=== PATIENT | female | born 1990 | race Caucasian/White ===

== ENCOUNTER 2018-05-28 13:53 | Inpatient (IN) ==
--- NOTE | 2018-05-28 13:58 | Emergency Department Note ---
Disposition Clinical Impression: Suicidal ideation, Medical clearance for psychiatric admission Disposition: Admitted As Inpatient Condition: Undetermined General Adult HPI - General Time Seen by Provider: 05/28/18 13:55 - Related Data Home Medications Medication Instructions Recorded Confirmed DULoxetine [Cymbalta] 30 mg PO DAILY 05/28/18 05/28/18 Gabapentin [Neurontin] 600 mg PO TID 05/28/18 05/28/18 Quetiapine Fumarate [SEROquel] 300 mg PO HS 05/28/18 05/28/18 lamoTRIgine [Subvenite] 25 mg PO DAILY 05/28/18 05/28/18 Allergies Allergy/AdvReac Type Severity Reaction Status Date / Time No Known Allergies Allergy Verified 05/28/18 14:02 Course Vital Signs Temperature 98.6 F 05/28/18 13:55 Pulse Rate 153 05/28/18 13:55 Respiratory Rate 14 05/28/18 13:55 Blood Pressure 113/96 05/28/18 13:55 O2 Sat by Pulse Oximetry 100 05/28/18 13:55 Temperature 98.6 F 05/28/18 14:07 Pulse Rate 88 05/28/18 15:26 Respiratory Rate 16 05/28/18 15:26 Blood Pressure 113/78 05/28/18 15:26 O2 Sat by Pulse Oximetry 98 05/28/18 15:26 Oxygen Delivery Oxygen Delivery Room Air Medical Decision Making - Lab Data Result diagrams: 05/28/18 14:04 05/28/18 14:04 Lab Results 05/28/18 05/28/18 05/28/18 Range/Units 14:04 14:04 14:04 WBC 8.4 (4.3-11.1) K/mcL RBC 4.73 (3.82-4.97) M/mcL Hgb 14.2 (11.5-15.4) g/dL Hct 40.0 (35.3-44.9) % MCV 84.6 (83.0-100.0) fL MCH 30.0 (28.0-33.3) pg MCHC 35.5 (31.6-35.5) g/dL RDW 12.0 (11.5-14.5) % Plt Count 308 (140-400) K/mcL MPV 8.4 L (9.4-12.4) fL Immature Gran % 0.4 (0-4) % Seg Neutrophils % 59.1 % Lymphocytes % 26.4 % Monocytes % 7.1 % Eosinophils % 6.5 % Basophils % 0.5 % Neutrophils # 5.0 (1.6-8.9) K/mcL Lymphocytes # 2.2 (0.6-4.6) K/mcL Monocytes # 0.6 (0.0-1.3) K/mcL Eosinophils # 0.5 (0.0-0.6) K/mcL Basophils # 0.0 (0.0-0.2) K/mcL Sodium 139 (136-145) mEq/L Potassium 3.8 (3.5-5.1) mEq/L Chloride 105 (98-107) mEq/L Carbon Dioxide 27 (23-29) mEq/L BUN 5 L (6-20) mg/dL Creatinine 0.72 (0.60-1.20) mg/dL Est GFR ( Amer) > 60 (> 60) Est GFR (Non-Af Amer) > 60 (> 60) BUN/Creatinine Ratio 7 (6-26) Glucose 111 H (70-105) mg/dL Calculated Osmolality 286 (280-300) Calcium 9.7 (8.6-10.3) mg/dL Total Bilirubin 0.4 (0.3-1.0) mg/dL Direct Bilirubin 0.1 (0.0-0.2) mg/dL Indirect Bilirubin 0.3 (0.0-1.2) mg/dL AST 20 (13-39) Units/L ALT 26 (7-52) Units/L Alkaline Phosphatase 70 (34-104) Units/L Serum Total Protein 7.6 (6.4-8.9) g/dL Albumin 4.2 (3.5-5.7) g/dL Globulin 3.4 (2.4-3.5) g/dL Albumin/Globulin Ratio 1.2 (1.1-2.2) Serum , Qual Negative (Negative) Urine Color (Yellow) Urine Clarity (Clear) Urine pH (5.0-8.0) pH Units Ur Specific Maynard (1.010-1.025) Urine Protein (Neg-Trace) mg/dL Urine Glucose (UA) (Normal) mg/dL Urine Ketones (Negative) mg/dL Urine Blood (Negative) Urine Nitrite (Negative) Urine Bilirubin (Negative) Urine Urobilinogen (Normal) mg/dL Ur Leukocyte Esterase (Negative) Urine Test (Negative) Salicylates < 2.5 L (15.0-30.0) mg/dL Urine Opiates Screen (Vkyvab=511) ng/mL Acetaminophen < 10 L (10-20) mcg/mL Ur Barbiturates Screen (Qyaopo=461) ng/mL Valproic Acid < 4 L (50-100) mcg/mL Ur Phencyclidine Scrn (Cutoff=25) ng/mL Ur Amphetamines Screen (Wwlmfg=8801) ng/mL U Benzodiazepines Scrn (Qnifna=462) ng/mL Urine Cocaine Screen (Cutoff= 300) ng/mL U Marijuana (THC) Screen (Cutoff = 50) ng/mL Ur Drug Screen Interp Ethyl Alcohol < 10 (Less than 10) mg/dL 05/28/18 05/28/18 05/28/18 Range/Units 14:25 14:25 14:25 WBC (4.3-11.1) K/mcL RBC (3.82-4.97) M/mcL Hgb (11.5-15.4) g/dL Hct (35.3-44.9) % MCV (83.0-100.0) fL MCH (28.0-33.3) pg MCHC (31.6-35.5) g/dL RDW (11.5-14.5) % Plt Count (140-400) K/mcL MPV (9.4-12.4) fL Immature Gran % (0-4) % Seg Neutrophils % % Lymphocytes % % Monocytes % % Eosinophils % % Basophils % % Neutrophils # (1.6-8.9) K/mcL Lymphocytes # (0.6-4.6) K/mcL Monocytes # (0.0-1.3) K/mcL Eosinophils # (0.0-0.6) K/mcL Basophils # (0.0-0.2) K/mcL Sodium (136-145) mEq/L Potassium (3.5-5.1) mEq/L Chloride (98-107) mEq/L Carbon Dioxide (23-29) mEq/L BUN (6-20) mg/dL Creatinine (0.60-1.20) mg/dL Est GFR ( Amer) (> 60) Est GFR (Non-Af Amer) (> 60) BUN/Creatinine Ratio (6-26) Glucose (70-105) mg/dL Calculated Osmolality (280-300) Calcium (8.6-10.3) mg/dL Total Bilirubin (0.3-1.0) mg/dL Direct Bilirubin (0.0-0.2) mg/dL Indirect Bilirubin (0.0-1.2) mg/dL AST (13-39) Units/L ALT (7-52) Units/L Alkaline Phosphatase (34-104) Units/L Serum Total Protein (6.4-8.9) g/dL Albumin (3.5-5.7) g/dL Globulin (2.4-3.5) g/dL Albumin/Globulin Ratio (1.1-2.2) Serum , Qual (Negative) Urine Color Yellow (Yellow) Urine Clarity Clear (Clear) Urine pH 7.5 (5.0-8.0) pH Units Ur Specific Maynard 1.007 L (1.010-1.025) Urine Protein Negative (Neg-Trace) mg/dL Urine Glucose (UA) Normal (Normal) mg/dL Urine Ketones Negative (Negative) mg/dL Urine Blood Negative (Negative) Urine Nitrite Negative (Negative) Urine Bilirubin Negative (Negative) Urine Urobilinogen Normal (Normal) mg/dL Ur Leukocyte Esterase Negative (Negative) Urine Test Negative (Negative) Salicylates (15.0-30.0) mg/dL Urine Opiates Screen Negative (Welgbj=204) ng/mL Acetaminophen (10-20) mcg/mL Ur Barbiturates Screen Negative (Wziudn=658) ng/mL Valproic Acid (50-100) mcg/mL Ur Phencyclidine Scrn Negative (Cutoff=25) ng/mL Ur Amphetamines Screen Negative (Zpifgr=3284) ng/mL U Benzodiazepines Scrn Negative (Qqxyyv=698) ng/mL Urine Cocaine Screen Negative (Cutoff= 300) ng/mL U Marijuana (THC) Screen Negative (Cutoff = 50) ng/mL Ur Drug Screen Interp See Below Ethyl Alcohol (Less than 10) mg/dL Critical Care Time Critical Care Time: Yes Total Critical Care Time: 30 Attestation: The high probability of a clinically significant, sudden or life threatening deterioration of the [] system(s) required my full and direct attention, intervention and personal management. The aggregate critical care time was [] minutes. This time is in addition to time spent performing reported procedures but includes the following: [] Data Review and interpretation [] Patient assessment and monitoring of vital signs [] Documentation [] Medication orders and management Attestation Statement - Attestation Attestation: I examined this patient and my medical decision-making was reviewed with the Resident Physician. I agree with the documented findings, disposition and treatment plan as described except to the extent set forth below. [id number] time provided Patient arrives by EMS from home. She was reported to be found by her roommates unresponsive. She is found to have superficial abrasions to her wrist. Upon arrival the patient is somnolent but responding to tactile stimuli. The medications brought with her revealed that she takes neuroleptic medications. Other medical history is unknown. The patient was given IV Narcan and responded subsequently and became very agitated and tachycardic. She is protecting her airway. Psychiatric/altered mental status workup initiated
--- NOTE | 2018-05-28 14:01 | Emergency Department Note ---
Disposition Clinical Impression: Suicidal ideation, Medical clearance for psychiatric admission Disposition: Admitted As Inpatient Condition: Undetermined Referrals: NONE,PCP [Primary Care Provider] - Forms: ED Satisfaction Letter Time of Disposition: 16:50 General Adult HPI - General Chief complaint: ED Psychiatric Symptoms Stated complaint: Unresponsive Time Seen by Provider: 05/28/18 13:55 Source: EMS Mode of arrival: EMS Limitations: altered mental status Nursing Notes Reviewed: Yes Vital Signs Reviewed: Yes - History of Present Illness HPI Narrative: 28-year-old female arrives to the emergency department after being found unresponsive by patient's roommates. The patient apparently stated she wanted to . She had numerous superficial abrasions to her left wrist. No pills were found. No emesis was noted upon arrival from EMS. EMS stated that she was unresponsive to any stimuli. When she was protecting her airway. Upon arrival to the emergency department, the patient was unresponsive but quickly was aroused after evaluation and Narcan was administered. The patient did not have signs similar to opiate intoxication. The patient began screaming that she wanted to . Unknown medical history otherwise other than the antiepileptics at the patient arrived with. She is on Lamictal, gabapentin, duloxetine, and Seroquel. The patient continues to scream and be unresponsive upon evaluation. No obvious trauma with the exception of very small superficial lacerations to the left wrist in a horizontal type pattern. The patient has no obvious head trauma, or any other signs of trauma noted. The patient was following commands to include looking at a evaluated her's when asked to. - Related Data Home Medications Medication Instructions Recorded Confirmed DULoxetine [Cymbalta] 30 mg PO DAILY 05/28/18 05/28/18 Gabapentin [Neurontin] 600 mg PO TID 05/28/18 05/28/18 Quetiapine Fumarate [SEROquel] 300 mg PO HS 05/28/18 05/28/18 lamoTRIgine [Subvenite] 25 mg PO DAILY 05/28/18 05/28/18 Allergies Allergy/AdvReac Type Severity Reaction Status Date / Time No Known Allergies Allergy Verified 05/28/18 14:02 Limitations: ROS unobtainable due to patients medical condition Past Medical History - Past Medical History Source: old records reviewed Medical history: Reports: seizures - Social History Smoking Status: Unknown if ever smoked Alcohol use: Reports: unknown Drug use: Reports: unknown Physical Exam - General Limitations: altered mental status General appearance: in no apparent distress, other (somnolent but responsive) - Head Head exam: atraumatic, normocephalic, normal inspection - Eye Eye exam: Present: normal appearance, PERRL, EOMI - ENT ENT exam: normal exam, normal oropharynx, mucous membranes moist - Neck Neck exam: Present: normal inspection, full ROM, trachea midline - Chest Chest inspection: Present: normal inspection, symmetric chest wall rise - Respiratory Respiratory exam: Present: normal lung sounds bilaterally - Cardiovascular Cardiovascular exam: Present: normal rhythm, tachycardia, normal heart sounds - Abdominal Exam Abdominal exam: Present: soft, Non-Tender. Absent: tenderness, distention, guarding, rebound, rigidity - Extremities Exam Extremities exam: Present: full ROM, normal capillary refill, other (Small superficial lacerations to the patients anterior left wrist). Absent: tenderness, pedal edema - Expanded Neurological Exam Speech: Present: fluid speech Coma Scale Eye Opening: Spontaneous Coma Scale Motor Response: Obeys Commands Coma Scale Verbal Response: Oriented Coma Scale Total: 15 - Psychiatric Psychiatric exam: Present: agitated, suicidal ideation - Skin Skin exam: Present: warm, dry, intact, normal color Course - Reevaluation(s) Reevaluation #1: Patient's lab work is unremarkable. Patient is awake and alert and answering questions appropriately. The patient has been medically cleared. 1A called and will see patient. Time: 14:56 Vital Signs Temperature 98.6 F 05/28/18 13:55 Pulse Rate 153 05/28/18 13:55 Respiratory Rate 14 05/28/18 13:55 Blood Pressure 113/96 05/28/18 13:55 O2 Sat by Pulse Oximetry 100 05/28/18 13:55 Temperature 98.6 F 05/28/18 14:07 Pulse Rate 88 05/28/18 15:26 Respiratory Rate 16 05/28/18 15:26 Blood Pressure 113/78 05/28/18 15:26 O2 Sat by Pulse Oximetry 98 05/28/18 15:26 Oxygen Delivery Oxygen Delivery Room Air Medical Decision Making - MDM Narrative Medical decision making narrative: Patient evaluated by one a. The patient will be admitted to Dr. Dubon. Patient made aware. No further questions or concerns noted. A pink slip was filled out and applied the patient's chart. - Lab Data Lab results reviewed: Yes I reviewed the patient's lab results. Result diagrams: 05/28/18 14:04 05/28/18 14:04 Lab Results 05/28/18 05/28/18 05/28/18 Range/Units 14:04 14:04 14:04 WBC 8.4 (4.3-11.1) K/mcL RBC 4.73 (3.82-4.97) M/mcL Hgb 14.2 (11.5-15.4) g/dL Hct 40.0 (35.3-44.9) % MCV 84.6 (83.0-100.0) fL MCH 30.0 (28.0-33.3) pg MCHC 35.5 (31.6-35.5) g/dL RDW 12.0 (11.5-14.5) % Plt Count 308 (140-400) K/mcL MPV 8.4 L (9.4-12.4) fL Immature Gran % 0.4 (0-4) % Seg Neutrophils % 59.1 % Lymphocytes % 26.4 % Monocytes % 7.1 % Eosinophils % 6.5 % Basophils % 0.5 % Neutrophils # 5.0 (1.6-8.9) K/mcL Lymphocytes # 2.2 (0.6-4.6) K/mcL Monocytes # 0.6 (0.0-1.3) K/mcL Eosinophils # 0.5 (0.0-0.6) K/mcL Basophils # 0.0 (0.0-0.2) K/mcL Sodium 139 (136-145) mEq/L Potassium 3.8 (3.5-5.1) mEq/L Chloride 105 (98-107) mEq/L Carbon Dioxide 27 (23-29) mEq/L BUN 5 L (6-20) mg/dL Creatinine 0.72 (0.60-1.20) mg/dL Est GFR ( Amer) > 60 (> 60) Est GFR (Non-Af Amer) > 60 (> 60) BUN/Creatinine Ratio 7 (6-26) Glucose 111 H (70-105) mg/dL Calculated Osmolality 286 (280-300) Calcium 9.7 (8.6-10.3) mg/dL Total Bilirubin 0.4 (0.3-1.0) mg/dL Direct Bilirubin 0.1 (0.0-0.2) mg/dL Indirect Bilirubin 0.3 (0.0-1.2) mg/dL AST 20 (13-39) Units/L ALT 26 (7-52) Units/L Alkaline Phosphatase 70 (34-104) Units/L Serum Total Protein 7.6 (6.4-8.9) g/dL Albumin 4.2 (3.5-5.7) g/dL Globulin 3.4 (2.4-3.5) g/dL Albumin/Globulin Ratio 1.2 (1.1-2.2) Serum , Qual Negative (Negative) Urine Color (Yellow) Urine Clarity (Clear) Urine pH (5.0-8.0) pH Units Ur Specific Sharon (1.010-1.025) Urine Protein (Neg-Trace) mg/dL Urine Glucose (UA) (Normal) mg/dL Urine Ketones (Negative) mg/dL Urine Blood (Negative) Urine Nitrite (Negative) Urine Bilirubin (Negative) Urine Urobilinogen (Normal) mg/dL Ur Leukocyte Esterase (Negative) Urine Test (Negative) Salicylates < 2.5 L (15.0-30.0) mg/dL Urine Opiates Screen (Vsszfy=734) ng/mL Acetaminophen < 10 L (10-20) mcg/mL Ur Barbiturates Screen (Rztpnt=544) ng/mL Valproic Acid < 4 L (50-100) mcg/mL Ur Phencyclidine Scrn (Cutoff=25) ng/mL Ur Amphetamines Screen (Zicjar=3299) ng/mL U Benzodiazepines Scrn (Skndth=680) ng/mL Urine Cocaine Screen (Cutoff= 300) ng/mL U Marijuana (THC) Screen (Cutoff = 50) ng/mL Ur Drug Screen Interp Ethyl Alcohol < 10 (Less than 10) mg/dL 05/28/18 05/28/18 05/28/18 Range/Units 14:25 14:25 14:25 WBC (4.3-11.1) K/mcL RBC (3.82-4.97) M/mcL Hgb (11.5-15.4) g/dL Hct (35.3-44.9) % MCV (83.0-100.0) fL MCH (28.0-33.3) pg MCHC (31.6-35.5) g/dL RDW (11.5-14.5) % Plt Count (140-400) K/mcL MPV (9.4-12.4) fL Immature Gran % (0-4) % Seg Neutrophils % % Lymphocytes % % Monocytes % % Eosinophils % % Basophils % % Neutrophils # (1.6-8.9) K/mcL Lymphocytes # (0.6-4.6) K/mcL Monocytes # (0.0-1.3) K/mcL Eosinophils # (0.0-0.6) K/mcL Basophils # (0.0-0.2) K/mcL Sodium (136-145) mEq/L Potassium (3.5-5.1) mEq/L Chloride (98-107) mEq/L Carbon Dioxide (23-29) mEq/L BUN (6-20) mg/dL Creatinine (0.60-1.20) mg/dL Est GFR ( Amer) (> 60) Est GFR (Non-Af Amer) (> 60) BUN/Creatinine Ratio (6-26) Glucose (70-105) mg/dL Calculated Osmolality (280-300) Calcium (8.6-10.3) mg/dL Total Bilirubin (0.3-1.0) mg/dL Direct Bilirubin (0.0-0.2) mg/dL Indirect Bilirubin (0.0-1.2) mg/dL AST (13-39) Units/L ALT (7-52) Units/L Alkaline Phosphatase (34-104) Units/L Serum Total Protein (6.4-8.9) g/dL Albumin (3.5-5.7) g/dL Globulin (2.4-3.5) g/dL Albumin/Globulin Ratio (1.1-2.2) Serum , Qual (Negative) Urine Color Yellow (Yellow) Urine Clarity Clear (Clear) Urine pH 7.5 (5.0-8.0) pH Units Ur Specific Sharon 1.007 L (1.010-1.025) Urine Protein Negative (Neg-Trace) mg/dL Urine Glucose (UA) Normal (Normal) mg/dL Urine Ketones Negative (Negative) mg/dL Urine Blood Negative (Negative) Urine Nitrite Negative (Negative) Urine Bilirubin Negative (Negative) Urine Urobilinogen Normal (Normal) mg/dL Ur Leukocyte Esterase Negative (Negative) Urine Test Negative (Negative) Salicylates (15.0-30.0) mg/dL Urine Opiates Screen Negative (Qaibde=205) ng/mL Acetaminophen (10-20) mcg/mL Ur Barbiturates Screen Negative (Gzrfsn=931) ng/mL Valproic Acid (50-100) mcg/mL Ur Phencyclidine Scrn Negative (Cutoff=25) ng/mL Ur Amphetamines Screen Negative (Bzsbbm=8306) ng/mL U Benzodiazepines Scrn Negative (Ppedzr=916) ng/mL Urine Cocaine Screen Negative (Cutoff= 300) ng/mL U Marijuana (THC) Screen Negative (Cutoff = 50) ng/mL Ur Drug Screen Interp See Below Ethyl Alcohol (Less than 10) mg/dL - Radiology Data Radiology results reviewed: Yes I reviewed the patient's radiology results. Chest X-Ray 05/28/18 13:58 IMPRESSION: 1. No active pulmonary disease. D/ / Flash Bloom MD / Flash Bloom MD Interpreting Provider: Flash Bloom MD - EKG Data EKG #1 EKG attestation: Yes I reviewed and interpreted this EKG. EKG results narrative: Heart rate 114. Normal sinus tachycardia. No ST elevation or ST depression noted. QTC at 423.
[2018-05-28 14:09] LABS: Basophils % 0.5 %; Eosinophils # 0.5 K/mcL (0.0-0.6); Eosinophils % 6.5 %; Hemoglobin 14.2 g/dL (11.5-15.4); Immature Granulocytes % 0.4 % (0-4); Lymphocytes # 2.2 K/mcL (0.6-4.6); Lymphocytes % 26.4 %; Mean Corpuscular HGB Conc 35.5 g/dL (31.6-35.5); Mean Corpuscular Volume 84.6 fL (83.0-100.0); Mean Platelet Volume 8.4 fL (9.4-12.4); Monocytes # 0.6 K/mcL (0.0-1.3); Monocytes % 7.1 %; Platelet Count 308 K/mcL (140-400); Red Blood Count 4.73 M/mcL (3.82-4.97); Segmented Neutrophils % 59.1 %
[2018-05-28 14:31] LABS: Acetaminophen < 10 mcg/mL (10-20); Alanine Aminotransferase 26 Units/L (7-52); Albumin 4.2 g/dL (3.5-5.7); Albumin/Globulin Ratio 1.2 (1.1-2.2); Alkaline Phosphatase 70 Units/L (34-104); Aspartate Amino Transferase 20 Units/L (13-39); BUN/Creatinine Ratio 7 (6-26); Bilirubin,Direct 0.1 mg/dL (0.0-0.2); Bilirubin,Indirect 0.3 mg/dL (0.0-1.2); Bilirubin,Total 0.4 mg/dL (0.3-1.0); Blood Urea Nitrogen 5 mg/dL (6-20); Calcium 9.7 mg/dL (8.6-10.3); Carbon Dioxide 27 mEq/L (23-29); Chloride 105 mEq/L (98-107); Ethanol < 10 mg/dL (Less than 10); Globulin 3.4 g/dL (2.4-3.5); Glucose 111 mg/dL (70-105); Osmolality,Calculated 286 (280-300); Potassium 3.8 mEq/L (3.5-5.1); Salicylate < 2.5 mg/dL (15.0-30.0); Sodium 139 mEq/L (136-145); Total Protein 7.6 g/dL (6.4-8.9); eGFR For Non-African Americans > 60 (> 60)
[2018-05-28 14:38] LABS: Bilirubin,Urine Negative (Negative); Blood,Urine Negative (Negative); Clarity,Urine Clear (Clear); Color,Urine Yellow (Yellow); Glucose,Urine (UA) Normal (Normal); Ketones,Urine Negative (Negative); Leukocyte Esterase,Urine Negative (Negative); Nitrite,Urine Negative (Negative); PH,Urine 7.5 pH Units (5.0-8.0); Protein,Urine Negative (Neg-Trace); Specific Gravity,Urine 1.007 (1.010-1.025); Urobilinogen,Urine Normal (Normal)
[2018-05-28 14:45] LABS: Amphetamine Screen,Urine Negative ng/mL (Cutoff=1000); Barbiturate Screen,Urine Negative ng/mL (Cutoff=200); Benzodiazepines Screen,Urine Negative ng/mL (Cutoff=200); Cannabinoid Screen,Urine Negative ng/mL (Cutoff = 50); Cocaine Screen,Urine Negative ng/mL (Cutoff= 300); Opiate Screen,Urine Negative ng/mL (Cutoff=300); Phencyclidine Screen,Urine Negative ng/mL (Cutoff=25)
[2018-05-28 14:51] LABS: Valproate < 4 mcg/mL (50-100)
[2018-05-28] MEDS ORDERED: hydrOXYzine pamoate 25 MG CAPSULE PO PRN (17:18)
[2018-05-28] MEDS ORDERED: Mag Hydrox/Al Hydrox/Simeth 30 ML UDC PO PRN (17:18)
[2018-05-28] MEDS ORDERED: *HR* LORazepam 1 MG TABLET PO PRN (17:18)
[2018-05-28] MEDS ORDERED: *HR* LORazepam 2 MG/ML VIAL IM PRN (17:18)
[2018-05-28] MEDS ORDERED: Haloperidol Lactate 5 MG/ML VIAL IM PRN (17:18)
[2018-05-28] MEDS ORDERED: traZODone 50 MG TABLET PO PRN (17:18)
[2018-05-28] MEDS ORDERED: MOM Conc 10 ML UD.LIQ PO PRN (17:18)
[2018-05-28] MEDS ORDERED: Ibuprofen 400 MG TABLET PO PRN (17:18)
[2018-05-28] MEDS: Gabapentin 300 MG CAPSULE PO SCH (21:03)
[2018-05-29] MEDS: Gabapentin 300 MG CAPSULE PO SCH ×3 (08:41→20:40)
[2018-05-29] MEDS ORDERED: lamoTRIgine 25 MG TABLET PO SCH (09:00)
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
[2018-05-29] MEDS: lamoTRIgine 25 MG TABLET PO SCH (20:38)
[2018-05-30] MEDS: Gabapentin 300 MG CAPSULE PO SCH ×3 (09:36→21:04)
[2018-05-30] MEDS: lamoTRIgine 25 MG TABLET PO SCH ×2 (09:36→21:04)
--- NOTE | 2018-05-30 13:35 | Psychiatry Progress Note ---
Date of Encounter: 05/30/18 Time of Encounter: 13:30 Subjective Interval history: ID the patient is a 28-year-old female transitioning to male but currently without hormonal or other treatment. Chief complaint I have not felt suicidal day. The patient has reported that today she has not had suicidal thinking however in the past 24 hours she has had vague SI she is attended groups and she has a follow-up scheduled in the future. The patient's treatment planning in includes dealing with depressed mood helping to control impulses. The patient recognizes that she may need a little more time to stabilize she is tolerated lamotrigine 50 mg twice a day she notes no rash or other unusual sides side effects or symptoms. The patient has been off Cymbalta and so efforts to continue with lamotrigine have continued. I have had a discussion with her about other options for the treatment of depression and fibromyalgia I mentioned Pristiq. I mentioned Kurt. I mentioned Lyrica. Review of Systems Psychiatric: Reports: abnormal sleep pattern, suicidal ideation, auditory hallucinations Results - Vital Signs Vital Signs: Temp Pulse Resp BP Pulse Ox 97.2 F L 80 16 106/70 98 05/30/18 09:00 05/30/18 09:00 05/30/18 09:00 05/30/18 09:00 05/28/18 15:26 Assessment and Plan (1) Chronic post-traumatic stress disorder Current visit: Yes Status: Acute Plan: Continue hospitalization, Close observation, Suicide Precautions per unit protocol, Encourage participation in unit milieu, Group Therapy, Monitor sleep, Monitor appetite, Secure weapons Risks, benefits, side effects, alternatives discussed w/pt: Yes Patient agreeable to treatment: Yes (2) 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 Current visit: Yes Status: Acute Plan: Continue hospitalization, Close observation, Suicide Precautions per unit protocol, Encourage participation in unit milieu Risks, benefits, side effects , alternatives discussed w/pt: Yes Patient agreeable to treatment: Yes (3) Severe recurrent major depressive disorder with psychotic symptoms Current visit: Yes Status: Acute Plan: Continue hospitalization, Close observation, Suicide Precautions per unit protocol, Encourage participation in unit milieu, Family/Supportive other meeting Risks, benefits, side effects, alternatives discussed w/pt: Yes Patient agreeable to treatment: Yes (4) Suicidal ideation Current visit: Yes Status: Acute Plan: Suicide Precautions per unit protocol, Secure weapons Risks, benefits, side effects, alternatives discussed w/pt: Yes Patient agreeable to treatment : Yes Consult Discharge Plan - Plan Referrals: [facility] [Outside] - 06/09/18 10:00 am (The above appointment is with Kim Velasquez for outpatient mental health counseling services.) [facility] [Outside] - 06/09/18 3:15 pm (The above appointment is with Shayna Rico for outpatient psychiatric assessment and medication management services.) Psychiatry Exam - Constitutional Vitals: Temp Pulse Resp BP Pulse Ox 97.2 F L 80 16 106/70 98 05/30/18 09:00 05/30/18 09:00 05/30/18 09:00 05/30/18 09:00 05/28/18 15:26 General appearance: age & developmentally appropriate, well-groomed, well- nourished - Musculoskeletal Gait: normal Station: relaxed Strength & Tone: normal for patient - Psychiatric Patient Orientation: Yes Person, Yes Time, Yes Place Level of alertness: Alert Behavior: calm, cooperative Psychomotor activity: Normal Eye Contact: Maintains Eye Contact Affect description: congruent with mood, full range Speech Volume: Normal Speech pattern: normal rate, normal rhythm, normal tone, fluent, spontaneous Language & Vocabulary: consistent with education Thought Process: Linear, Goal Oriented Thought Content: Yes Suicidal ideation, No Homicidal ideation, No Overt delusions Perceptual Disturbances: Yes Auditory hallucinations, No Visual hallucinations Attention Span Ability: Capable of Focused Attention Memory Description: Grossly Intact Patient Reliability: Reliable Historian Fund of knowledge: Yes abstraction ability, Yes aware of current events Intelligence Estimate: Average Judgment: Fair Insight: Partial
[2018-05-31] MEDS: Gabapentin 300 MG CAPSULE PO SCH ×3 (09:45→19:48)
[2018-05-31] MEDS: lamoTRIgine 25 MG TABLET PO SCH ×2 (09:45→19:47)
--- NOTE | 2018-05-31 11:27 | Electrocardiograph Report ---
[address] [place], [place] [address] Test Date: 2018-05-28 Pat Name: Miya Del Real Department: [id number] Room: 1A Gender: F [employer] Monitoring Technician: : 1990 Requested By: Toby García Order Number: [id number] Reading MD: Ania Song Measurements Intervals [place] Rate: 114 P: 61 SC: 128 QRS: 83 QRSD: 73 T: -6 QT: 307 QTc: 423 Interpretive Statements Sinus tachycardia Artifact Electronically Signed On 05-31-2018 11:25:59 EDT by Ania Song
--- NOTE | 2018-05-31 12:34 | Psychiatry Progress Note ---
Date of Encounter: 05/31/18 Time of Encounter: 12:31 Subjective Interval history: Patient seen for follow-up. Case discussed with nursing staff. Review of notes and labs and medication. Staff report patient denies suicidal ideation, medication compliant, participate in some groups. Patient is tolerating medication changes without any significant side effects. She reported improved sleep and stable mood. She shared some history information with me and she is considering looking for part-time job. Review of Systems Psychiatric: Reports: abnormal sleep pattern, suicidal ideation, auditory hallucinations Results - Vital Signs Vital Signs: Temp Pulse Resp BP Pulse Ox 98.9 F 104 18 113/72 97 05/31/18 09:00 05/31/18 09:00 05/31/18 09:00 05/31/18 09:00 05/31/18 09:00 Assessment and Plan (1) Severe recurrent major depressive disorder with psychotic symptoms Current visit: Yes Status: Acute Plan: Continue hospitalization, Close observation, Suicide Precautions per unit protocol, Encourage participation in unit milieu, Group Therapy, Monitor sleep, Monitor appetite Risks, benefits, side effects, alternatives discussed w/pt: Yes Patient agreeable to treatment: Yes Consult Discharge Plan - Plan Referrals: [facility] [Outside] - 06/09/18 10:00 am (The above appointment is with Kim Velasquez for outpatient mental health counseling services.) [facility] [Outside] - 06/09/18 3:15 pm (The above appointment is with Shayna Rico for outpatient psychiatric assessment and medication management services.) Psychiatry Exam - Constitutional Vitals: Temp Pulse Resp BP Pulse Ox 98.9 F 104 18 113/72 97 05/31/18 09:00 05/31/18 09:00 05/31/18 09:00 05/31/18 09:00 05/31/18 09:00 General appearance: age & developmentally appropriate, well-groomed, well- nourished, obese - Musculoskeletal Gait: normal Station: relaxed Strength & Tone: normal for patient - Psychiatric Patient Orientation: Yes Person, Yes Time, Yes Place Level of alertness: Alert Behavior: calm, cooperative, guarded Psychomotor activity: Normal Eye Contact: Maintains Eye Contact Mood Description: Euthymic/stable, Anxious Affect description: congruent with mood, constricted Speech Volume: Normal Speech pattern: normal rate, normal rhythm, normal tone, fluent, spontaneous Language & Vocabulary: consistent with education Thought Process: Linear, Goal Oriented Thought Content: No Suicidal ideation, No Homicidal ideation, No Overt delusions Perceptual Disturbances: No Auditory hallucinations, No Visual hallucinations Attention Span Ability: Capable of Focused Attention Memory Description: Grossly Intact Patient Reliability: Reliable Historian Fund of knowledge: Yes abstraction ability, Yes aware of current events Intelligence Estimate: Average Judgment: Limited Insight: Partial
[2018-06-01] MEDS: Gabapentin 300 MG CAPSULE PO SCH ×3 (09:17→20:19)
[2018-06-01] MEDS: lamoTRIgine 25 MG TABLET PO SCH ×2 (09:17→20:20)
--- NOTE | 2018-06-01 14:48 | Psychiatry Progress Note ---
Date of Encounter: 06/01/18 Time of Encounter: 14:46 Subjective Interval history: Patient seen for follow-up. Case discussed was treatment team. Staff report patient is medication compliant and cooperative and interacts appropriately with peers and staff. She denies suicidal ideation. She spent time playing was puzzles and games. She shared with me her interest in exotic birds and animals and she liked to volunteer in animal fci. She is future oriented and well motivated. Review of Systems Psychiatric: Reports: abnormal sleep pattern, suicidal ideation, auditory hallucinations Results - Vital Signs Vital Signs: Temp Pulse Resp BP Pulse Ox 97.6 F 102 16 116/82 97 06/01/18 09:00 06/01/18 09:00 06/01/18 09:00 06/01/18 09:00 06/01/18 09:00 Assessment and Plan (1) Severe recurrent major depressive disorder with psychotic symptoms Current visit: Yes Status: Acute Plan: Continue hospitalization, Close observation, Suicide Precautions per unit protocol, Encourage participation in unit milieu, Group Therapy, Monitor sleep, Monitor appetite Risks, benefits, side effects, alternatives discussed w/pt: Yes Patient agreeable to treatment: Yes Consult Discharge Plan - Plan Referrals: [facility] [Outside] - 06/09/18 10:00 am (The above appointment is with Kim Velasquez for outpatient mental health counseling services.) [facility] [Outside] - 06/09/18 3:15 pm (The above appointment is with Shayna Rico for outpatient psychiatric assessment and medication management services.) Psychiatry Exam - Constitutional Vitals: Temp Pulse Resp BP Pulse Ox 97.6 F 102 16 116/82 97 06/01/18 09:00 06/01/18 09:00 06/01/18 09:00 06/01/18 09:00 06/01/18 09:00 General appearance: age & developmentally appropriate, well-groomed, well- nourished, obese - Musculoskeletal Gait: normal Station: relaxed Strength & Tone: normal for patient - Psychiatric Patient Orientation: Yes Person, Yes Time, Yes Place Level of alertness: Alert Behavior: calm, cooperative, guarded Psychomotor activity: Normal Eye Contact: Maintains Eye Contact Mood Description: Euthymic/stable Affect description: congruent with mood, full range Speech Volume: Normal Speech pattern: normal rate, normal rhythm, normal tone, fluent, spontaneous Language & Vocabulary: consistent with education Thought Process: Linear, Goal Oriented Thought Content: No Suicidal ideation, No Homicidal ideation, No Overt delusions Perceptual Disturbances: No Auditory hallucinations, No Visual hallucinations Attention Span Ability: Capable of Focused Attention Memory Description: Grossly Intact Patient Reliability: Reliable Historian Fund of knowledge: Yes abstraction ability, Yes aware of current events Intelligence Estimate: Average Judgment: Limited Insight: Partial
[2018-06-02] MEDS: lamoTRIgine 25 MG TABLET PO SCH (08:59)
[2018-06-02] MEDS: Gabapentin 300 MG CAPSULE PO SCH (08:59)
[2018-06-02 09:43] VITALS: BP 117/78
--- NOTE | 2018-06-02 10:43 | Discharge Summary ---
Date of Encounter: 06/02/18 Time of Encounter: 10:41 Diagnosis - Discharge Diagnosis (1) Severe recurrent major depressive disorder with psychotic symptoms Status: Acute Medications - Discharge Medications Prescriptions: lamoTRIgine [Lamictal] 50 mg PO BID #60 tablet Ondansetron ODT [Zofran ODT] 4 mg SL Q8HR #20 tab.rapdis 12/25/17 [Rx] DULoxetine [Cymbalta] 30 mg PO DAILY 05/28/18 [History] Gabapentin [Neurontin] 600 mg PO TID 05/28/18 [History] Quetiapine Fumarate [Seroquel] 300 mg PO HS 05/28/18 [History] lamoTRIgine [Lamictal] 50 mg PO BID #60 tablet 06/02/18 [Rx] 3 Allergy/AdvReac Type Severity Reaction Status Date / Time citalopram [From Celexa] Allergy Hives Verified 05/29/18 12:42 sertraline [From Zoloft] Allergy Hives Verified 05/29/18 12:42 Provider Date of admission: 05/28/18 17:18 Primary care physician: PCP NONE Discharging clinician: Cj Khalil Psychiatry Exam - Constitutional Vitals: Temp Pulse Resp BP Pulse Ox 97.8 F 118 18 117/78 97 06/02/18 09:00 06/02/18 09:00 06/02/18 09:00 06/02/18 09:00 06/02/18 09:00 General appearance: obese - Musculoskeletal Gait: normal Station: relaxed Strength & Tone: normal for patient - Psychiatric Patient Orientation: Yes Person, Yes Time, Yes Place Level of alertness: Alert Behavior: calm, cooperative Psychomotor activity: Normal Eye Contact: Maintains Eye Contact Mood Description: Euthymic/stable Affect description: congruent with mood, full range Speech Volume: Normal Speech pattern: normal rate, normal rhythm, normal tone, fluent, spontaneous Language & Vocabulary: consistent with education Thought Process: Linear, Goal Oriented Thought Content: No Suicidal ideation, No Homicidal ideation, No Overt delusions Perceptual Disturbances: No Auditory hallucinations, No Visual hallucinations Attention Span Ability: Capable of Focused Attention Memory Description: Grossly Intact Patient Reliability: Reliable Historian Fund of knowledge: Yes abstraction ability, Yes aware of current events Intelligence Estimate: Average Judgment: Good Insight: Partial Hospital Course Hospital course: Ms. Del Real is a 28 year old female admitted for suicidal ideation and suicidal behavior with self cutting and overdose on medication. For details admission please see H&P On the unit patient medications were reviewed she was taken off Cymbalta and her Lamictal dose was increased from 25-50 mg daily, she continued on gabapentin and Seroquel. Patient participated in group activities, patient was medication compliant. She kept herself busy by playing games and puzzles. She was medication compliant. She denies any problem with sleep or appetite. She denied any side effects from medication. Discharge plans were completed by nursing home social worker. On discharge patient was medically stable, denied any suicidal ideation, she was future oriented with plans to look for part-time job. She is discharged in stable condition. - Time Spent with Patient Total time spent providing and/or coordinating discharge services: Greater than 30 minutes Assessment and Plan - Patient/Caregiver Discharge Instructions Activity: resume usual activities as tolerated Diet: regular diet - Follow up Plan Follow up with: [facility] [Outside] - 06/09/18 10:00 am (The above appointment is with Kim Velasquez for outpatient mental health counseling services.) [facility] [Outside] - 06/09/18 3:15 pm (The above appointment is with Shayna Rico for outpatient psychiatric assessment and medication management services.) Functional capacity at discharge: independent ambulation Overall status at discharge: Stable Disposition: Home, Self-Care Quality - Multiple Antipsychotics Patient discharged on 2 or more antipsychotic medications: No Procedures - Procedures Procedures: Medication Management, Crisis Stabilization, Supportive Therapy, Group Therapy, Psychoeducational Therapy
== END 2018-06-02 12:15 | disposition home or self-care (01) | DRG 751 ==
LOC: EDBD → EMEROOARM 13:53 → 1ANU 13:53 → SUATTDRO 17:18 → MERGE 17:18 → 1ANU 17:34
PROVIDERS: ADMIT Psychiatry & Neurology Forensic Psychiatry; ATTEND Psychiatry & Neurology Psychiatry